=== PATIENT | female | born 1975 | race Caucasian/White ===

== ENCOUNTER 2023-05-06 16:46 | Emergency (ER) | payer OTHER ==
[2023-05-06 17:08] VITALS: BP 126/81; PULSE 79; RESP 18; TEMP 98.7; BMI 27.6
[2023-05-06] MEDS ORDERED: ACETAMINOPHEN 500 MG TABLET (FP) PO ONE (17:14)
[2023-05-06] MEDS ORDERED: ACETAMINOPHEN WITH CODEINE 300MG/30MG TABLET PO ONE (17:16)
[2023-05-06] MEDS ORDERED: DIPHTH,PERTUSS(ACELL),TET 0.5 ML DISP.SYRIN IM ONE ×2 (17:23→17:39)
[2023-05-06] MEDS ORDERED: ACETAMINOPHEN 500 MG TABLET (FP) ONE (17:38)
== END 2023-05-06 18:14 | disposition home or self-care (01) ==
LOC: FER 16:46
PROC: 3E0234Z Introduction of Serum, Toxoid and Vaccine into Muscle, Percutaneous Approach (ICD-10-PCS; principal; 2023-05-06)
DX: S93.431A Sprain of tibiofibular ligament of right ankle, initial encounter (principal); S90.511A Abrasion, right ankle, initial encounter; M25.571 Pain in right ankle and joints of right foot; W07.XXXA Fall from chair, initial encounter; X50.1XXA Overexertion from prolonged static or awkward postures, initial encounter; Y93.9 Activity, unspecified; Y92.9 Unspecified place or not applicable
CPT/HCPCS: 73610-TC-RT-FY; 90715; 99283-25